=== PATIENT | male | born 1985 | race Caucasian/White ===

== ENCOUNTER 2017-09-28 10:43 | Emergency (ER) | payer SELFPAY ==
[2017-09-28 10:53] VITALS: BP 142/85; PULSE 69; TEMP 98.1; BMI 24.3
--- NOTE | 2017-09-28 11:17 | PDOC ---
History of Present Illness - General Chief Complaint: Abscess Boil Stated Complaint: FACE INJURY History Source: Patient Exam Limitations: No Limitations - History of Present Illness Initial Comments: 09/28/17 11:26 Pt is a 32 yo M current marijuana smoker, PMHx of childhood asthma, presenting with R lower jaw swelling x2 days. Patient suddenly noticed the R lower jaw swelling, denies trauma or falls. No associated fevers, no drooling, no difficulty oepning the moth, no sore throat no swellings in other parts of the body, no difficulty breathing, no ear pain or discharge, no nasal congestion. Patient has had dental problems in need of dental care in the past but did not follow up. Pt has still been able to chew on the opposite side. 09/28/17 11:27 Timing/Duration: getting worse Severity: moderate Associated Symptoms: denies: chest pain, cough, diaphoresis, fever/chills, loss of appetite, malaise, nausea/vomiting, seizure, shortness of breath, syncope Past History - Travel Traveled outside of the country in the last 30 days: No Close contact w/someone who was outside of country & ill: No - Past Medical History Allergies/Adverse Reactions: Allergies Allergy/AdvReac Type Severity Reaction Status Date / Time No Known Allergies Allergy Verified 09/28/17 10:49 Home Medications: Ambulatory Orders Amox-Tr/K Cl [Augmentin - 875Mg Tablet] 1 tab PO BID #14 tablet 09/28/17 Ibuprofen [Motrin -] 600 mg PO QID #28 tablet 09/28/17 Asthma: Yes (Childhood asthma) CVA: No COPD: No DVT: No Dementia: No - Immunization History Immunization Up to Date: Yes - Suicide/Smoking/Psychosocial Hx Smoking History: Never smoked Drug/Substance Use Hx: Yes (Marijuana) Substance Use Type: Marijuana Review of Systems - Review of Systems Able to Perform ROS?: Yes Is the patient limited Mongolian proficient: No Constitutional: No: Chills, Fever, Malaise, Night Sweats, Weakness HEENTM: Yes: Other (L lower jaw swelling). No: Eye Pain, Blurred Vision, Ear Discharge, Nose Pain, Nose Congestion, Hearing Loss, Throat Pain, Difficulty Swallowing Respiratory: No: Cough, Orthopnea, Shortness of Breath, SOB at Rest, Stridor, Wheezing, Productive cough, Hemoptysis Cardiac (ROS): No: Chest Pain, Edema, Palpitations, Syncope, Chest Tightness ABD/GI: No: Abdominal Distended, Nausea, Vomiting : No: Burning, Dysuria, Hematuria Musculoskeletal: No: Back Pain, Muscle Weakness Neurological: No: Headache, Numbness, Paresthesia, Seizure, Dizziness Hematologic/Lymphatic: No: Anemia, Blood Clots *Physical Exam - Vital Signs Last Vital Signs Temp Pulse Resp BP Pulse Ox 98.1 F 69 18 142/85 99 09/28/17 10:50 09/28/17 10:50 09/28/17 10:50 09/28/17 10:50 09/28/17 10:50 - Physical Exam General Appearance: No: Apparent Distress HEENT: positive: EOMI, LINDA, Hearing Grossly Normal, Other (Swollen R lower jaw , no fluctuance. Missing teeth, number 30 and multiple teeth with cavities, no evidence of periodontitis, no obvious internal mass. No palpable nodes. Firm skin externally). negative: Scleral Icterus (L), Pharyngeal Erythema, Tonsillar Exudate, Nasal Congestion Neck: positive: Supple. negative: Tender Respiratory/Chest: positive: Lungs Clear, Normal Breath Sounds. negative: Chest Tender, Respiratory Distress, Labored Respiration, Stridor, Wheezing Cardiovascular: positive: Regular Rate, S1, S2. negative: Tachycardia Gastrointestinal/Abdominal: positive: Normal Bowel Sounds, Soft Musculoskeletal: negative: CVA Tenderness Extremity: positive: Normal Inspection Integumentary: positive: Dry, Warm Medical Decision Making - Medical Decision Making 09/28/17 11:38 R Lower jaw skin swelling, non fluctuant, likely cellulitis of R lower jaw. Could be secondary to dental cavities Patient able to breath well, no drooling. Plan: Augmentin PO 875 mg bid x 1 week Patient to return in 2 days for wound care If he developes difficulty breathing or the swelling worsens, he should return to the ED 09/28/17 12:05 *DC/Admit/Observation/Transfer Diagnosis at time of Disposition: Swelling, Jaw asymmetry, Skin and subcutaneous tissue disease Cellulitis Qualifiers: Site of cellulitis: face Qualified Code(s): L03.211 - Cellulitis of face - Discharge Dispostion Disposition: HOME Condition at time of disposition: Fair Admit: No - Prescriptions Prescriptions: Amox-Tr/K Cl [Augmentin - 875Mg Tablet] 1 tab PO BID #14 tablet Ibuprofen [Motrin -] 600 mg PO QID #28 tablet - Referrals - Patient Instructions Additional Instructions: You were seen here for swelling of your R lower jaw. You were noted to have an infection of the skin without an abscess. We are giving you Augmentin 875mg to take by moth twice a day for one week You should also take Ibuprofen 600mg every 6 hours for pain If you have worsening swelling, or are unable to breath, please return to the emergency room Return in 2 days to have a check to make sure the swelling is getting better. Please follow up with a dentist to have your teeth examined and treated - Post Discharge Activity - Attestations Physician Attestion: 09/28/17 11:54 Louise Vallecillo MD
[2017-09-28] MEDS ORDERED: AMOX TR/POT CLAV 875MG/125MG TABLETS (FP) PO ONE (11:35)
--- NOTE | 2017-09-28 11:41 | PDOC ---
Attending Attestation - Resident Resident Name: Louise Vallecillo I - ED Attending Attestation I have performed the following: I have examined & evaluated the patient, The case was reviewed & discussed with the resident, I agree w/resident's findings & plan, Exceptions are as noted - HPI HPI: 09/28/17 11:36 32-year-old male with no past medical history presents with right facial, jaw swelling. The patient reports that the symptoms are gone on for 2 days but worsened this morning. Patient does have history of dental cavities that he has not recently seen a dentist about. Noticed that he was developing some right lower jaw skin pain and some swelling and came to the ED. Denies fevers or chills. Patient is able to breathe comfortably and tolerated by mouth without discomfort. No drooling. Came in for evaluation. - Physicial Exam PE: 09/28/17 11:39 GENERAL: Awake, alert, and fully oriented, in no acute distress. HEAD: No signs of trauma EYES: PERRLA, EOMI, sclera anicteric, conjunctiva clear ENT: Auricles normal inspection, hearing grossly normal, nares patent, oropharynx clear without exudates. Tooth 30 missing. Tooth 29 and 31 with cavities. No gingival disease. R lower jaw with approx 5x5 cm induration but no fluctuance. Mild tenderness. No erythema. No drainage. No salivary stones. NECK: Normal ROM, supple, no lymphadenopathy, JVD, or masses EXTREMITIES: Normal range of motion, no edema. No clubbing or cyanosis. No cords, erythema, or tenderness NEUROLOGICAL: Cranial nerves II through XII grossly intact. Normal speech, normal gait SKIN: Warm, Dry, normal turgor, no rashes or lesions noted. - Medical Decision Making 09/28/17 11:41 Vital Signs Temp Pulse Resp BP Pulse Ox 98.1 F 69 18 142/85 99 09/28/17 10:50 09/28/17 10:50 09/28/17 10:50 09/28/17 10:50 09/28/17 10:50 The patient is well-appearing and nontoxic. The patient most certainly has indurated skin on the right side of face. No fevers, chills. Breathing comfortably. No evidence of airway obstruction. No clinical evidence of an abscess. I suspect that the source of infection is from the cavities. Will prescribe augmentin. Will treat as facial cellulitis. I advised the patient that if the swelling worsens even more tomorrow to return for a CT facial with IV contrast. Otherwise, patient should return to the ER in 2 days for a wound check. Pt is agreeable to plan.
[2017-09-28] MEDS ORDERED: IBUPROFEN 600 MG TABLET (FP) PO ONE ×2 (11:48→11:51)
[2017-09-28] MEDS ORDERED: AMOX TR/POT CLAV 875MG/125MG TABLETS (FP) ONE (11:50)
== END 2017-09-28 12:10 | disposition home or self-care (01) ==
LOC: JER 10:43
DX: L03.211 Cellulitis of face (principal); K02.9 Dental caries, unspecified
CPT/HCPCS: 99281-25

== ENCOUNTER 2024-05-31 20:48 | Day surgery (SDC) | payer OTHER ==
[2024-05-31 20:55] VITALS: BMI 23.1
[2024-05-31] MEDS ORDERED: ACETAMINOPHEN INJECTION 100 ML ONE (21:33)
[2024-05-31] MEDS ORDERED: ONDANSETRON 4 MG/2 ML VIAL ONE (21:33)
[2024-05-31 21:34] LABS: BASO % 0.4 % (0-2.0); EOS % 0.6 % (0-4.5); HEMATOCRIT 38.4 % (35.4-49); LYMPH % 30.8 % (8-40); MCH 31.8 pg (25.7-33.7); MEAN CELL VOLUME 93.5 fl (80-96); MEAN PLT VOLUME 8.1 fl (7.5-11.1); MONO % 4.5 % (3.8-10.2); NEUT % 63.7 % (42.8-82.8); PLATELET COUNT 235 10^3/uL (134-434); RBC 4.11 M/mm3 (4.00-5.60); RDW 13.5 % (11.9-15.9); WHITE BLOOD COUNT 11.9 K/mm3 (4.0-10.0)
[2024-05-31] MEDS: ONDANSETRON 4 MG/2 ML VIAL IVPUSH ONE (21:41)
[2024-05-31] MEDS: SODIUM CHLORIDE 0.9% 500 ML INFUS.BAG IV ONE (21:41)
[2024-05-31] MEDS: ACETAMINOPHEN 1000 MG/100 ML BAG IVPB ONE (21:41)
[2024-05-31 21:49] LABS: POTASSIUM 3.8 mmol/L (3.5-5.1)
[2024-05-31 21:51] LABS: CALCIUM 9.1 mg/dL (8.5-10.1)
[2024-05-31 21:52] LABS: ALBUMIN 3.7 g/dl (3.4-5.0); BLOOD UREA NITROGEN 12.8 mg/dL (7-18)
[2024-05-31 21:56] LABS: BILIRUBIN,TOTAL 0.3 mg/dL (0.2-1); TOT PROT 7.9 g/dl (6.4-8.2)
[2024-05-31] MEDS ORDERED: KETOROLAC TROMETHAMINE 30 MG/1 ML VIAL ONE (22:03)
[2024-05-31] MEDS: KETOROLAC TROMETHAMINE 30 MG/1 ML VIAL IVPUSH ONE (22:06)
[2024-05-31 22:52] LABS: EPI CELLS 1 /uL (0-25.1); HYALINE CASTS 0 /uL (0-3.1); URINE APPEARANCE TURBID; URINE BACTERIA 9 /uL (0-1359); URINE BILIRUBIN NEGATIVE (NEGATIVE); URINE COLOR ORANGE; URINE GLUCOSE (UA) NEGATIVE (NEGATIVE); URINE KETONE TRACE (NEGATIVE); URINE LEUK ESTERASE TRACE (NEGATIVE); URINE NITRITE NEGATIVE (NEGATIVE); URINE PROTEIN 2+ (NEGATIVE); URINE RBC 2469 /uL (0-23.9); URINE UROBILINOGEN 0.2 mg/dL (0.2-1.0); URINE WBC 45 /uL (0-25.8)
[2024-05-31] MEDS ORDERED: MORPHINE SULFATE 2 MG/ML SYRINGE ONE (22:58)
[2024-05-31] MEDS: SODIUM CHLORIDE 1,000 ML IV STA (23:08)
[2024-05-31] MEDS: morphine CARPU-JECT 2 MG/1 ML DISP.SYRIN IVPUSH ONE (23:08)
[2024-06-01] MEDS ORDERED: SODIUM CHLORIDE 1,000 ML IV SCH (01:00)
[2024-06-01] MEDS ORDERED: TAMSULOSIN HCL 0.4 MG CAP ONE ×2 (01:03→10:04)
[2024-06-01] MEDS ORDERED: CEFTRIAXONE 1 G/50 ML PREMIX 50 ML IVPB ONE ×2 (01:04→11:25)
[2024-06-01] MEDS: CEFTRIAXONE 1 GM in DEXTROSE 5%-WATER - 100 ML IVPB ONE (01:06)
[2024-06-01] MEDS: TAMSULOSIN HCL 0.4 MG CAP PO ONE (01:06)
[2024-06-01 01:17] LABS: INR 0.96 (0.83-1.09); PROTHROMBIN TIME (PATIENT) 11.1 SEC (9.7-13.0)
[2024-06-01 01:20] LABS: ACTIVATED PTT 28.6 SECONDS (25.2-36.5)
[2024-06-01] MEDS ORDERED: morphine SULFATE 4 MG/ML VIAL ONE (02:37)
[2024-06-01] MEDS ORDERED: MORPHINE SULFATE 2 MG/ML SYRINGE ONE ×3 (02:40→09:00)
[2024-06-01] MEDS: SODIUM CHLORIDE 1,000 ML IV SCH (02:49)
[2024-06-01] MEDS: MORPHINE SULFATE 2 MG/ML SYRINGE IVPUSH PRN (02:50)
[2024-06-01 07:26] LABS: BASO % 0.3 % (0-2.0); EOS % 0.5 % (0-4.5); HEMATOCRIT 37.2 % (35.4-49); HEMOGLOBIN 12.8 GM/dL (11.7-16.9); LYMPH % 32.4 % (8-40); MCH 32.1 pg (25.7-33.7); MCHC 34.5 g/dl (32.0-35.9); MEAN CELL VOLUME 93.2 fl (80-96); MEAN PLT VOLUME 8.8 fl (7.5-11.1); MONO % 7.1 % (3.8-10.2); NEUT % 59.7 % (42.8-82.8); PLATELET COUNT 204 10^3/uL (134-434); RBC 3.99 M/mm3 (4.00-5.60); RDW 13.6 % (11.9-15.9); WHITE BLOOD COUNT 8.1 K/mm3 (4.0-10.0)
[2024-06-01 07:28] LABS: INR 0.98 (0.83-1.09); PROTHROMBIN TIME (PATIENT) 11.3 SEC (9.7-13.0)
[2024-06-01 07:45] LABS: CALCIUM 8.1 mg/dL (8.5-10.1); MAGNESIUM 1.7 mg/dL (1.8-2.4)
[2024-06-01 07:49] LABS: CREATININE 0.9 mg/dL (0.55-1.3); PHOSPHOROUS 2.6 mg/dL (2.5-4.9)
[2024-06-01 07:51] LABS: BILIRUBIN,TOTAL 0.8 mg/dL (0.2-1); TOT PROT 6.5 g/dl (6.4-8.2)
[2024-06-01] MEDS ORDERED: ACETAMINOPHEN 325 MG TABLET (FP) ONE (08:28)
[2024-06-01] MEDS: ACETAMINOPHEN 325 MG TABLET (FP) PO PRN (08:30)
[2024-06-01] MEDS: morphine CARPU-JECT 2 MG/1 ML DISP.SYRIN IVPUSH ONE (09:08)
[2024-06-01] MEDS ORDERED: ACETAMINOPHEN 1000 MG/100 ML BAG IVPB PRN (09:19)
[2024-06-01] MEDS ORDERED: morphine SULFATE 4 MG/ML VIAL IVPUSH PRN (09:19)
[2024-06-01] MEDS ORDERED: ENOXAPARIN NA (PORCINE) 40 MG/0.4 ML DISP.SYRIN SQ SCH (10:00)
[2024-06-01] MEDS ORDERED: KETOROLAC TROMETHAMINE 15 MG/ML VIAL ONE (10:05)
[2024-06-01] MEDS: MORPHINE SULFATE 2 MG/ML SYRINGE IVPUSH ONE (10:10)
[2024-06-01] MEDS: KETOROLAC TROMETHAMINE 15 MG/ML VIAL IVPUSH ONE (10:10)
[2024-06-01] MEDS: TAMSULOSIN HCL 0.4 MG CAP PO SCH (10:11)
[2024-06-01] MEDS ORDERED: MAGNESIUM 1GM/D5W - 1 GM/100 ML IVPB IVPB ONE (10:28)
[2024-06-01] MEDS: MAGNESIUM 1GM/D5W 100ML - 100 ML IVPB IVPB ONE (10:37)
[2024-06-01] MEDS: LACTATED RINGERS SOLUTION 1,000 ML/1,000 ML INFUS.BAG IV SCH ×2 (11:43→13:30)
[2024-06-01] MEDS ORDERED: MIDAZOLAM HCL 2 MG/2 ML SINGLE DOSE VIAL ONE (12:19)
[2024-06-01] MEDS ORDERED: PROPOFOL 20 ML ONE (12:28)
[2024-06-01] MEDS: CEFTRIAXONE 1 GM/50 ML PREMIX IVPB ONE (12:45)
[2024-06-01] MEDS ORDERED: ACETAMINOPHEN 325 MG TABLET (FP) PO PRN (13:26)
[2024-06-01] MEDS ORDERED: ONDANSETRON 4 MG/2 ML VIAL IVPUSH PRN (13:28)
[2024-06-01] MEDS: CEFTRIAXONE 1 G/50 ML PREMIX 50 ML IVPB SCH (20:53)
[2024-06-01] MEDS: LACTATED RINGERS SOLUTION 1,000 ML IV SCH (20:54)
[2024-06-01] MEDS: ACETAMINOPHEN 1000 MG/100 ML BAG IVPB PRN (23:07)
[2024-06-02] MEDS: morphine SULFATE 4 MG/ML VIAL IVPUSH PRN (05:43)
[2024-06-02] MEDS: TAMSULOSIN HCL 0.4 MG CAP PO SCH (08:46)
[2024-06-02] MEDS: CEFTRIAXONE 1 G/50 ML PREMIX 50 ML IVPB SCH (09:28)
[2024-06-02 09:39] LABS: BASO % 0.2 % (0-2.0); HEMATOCRIT 36.3 % (35.4-49); HEMOGLOBIN 11.8 GM/dL (11.7-16.9); LYMPH % 14.4 % (8-40); MCH 31.1 pg (25.7-33.7); MCHC 32.5 g/dl (32.0-35.9); MEAN CELL VOLUME 95.5 fl (80-96); MEAN PLT VOLUME 9.7 fl (7.5-11.1); MONO % 6.4 % (3.8-10.2); PLATELET COUNT 201 10^3/uL (134-434); RDW 13.6 % (11.9-15.9); WHITE BLOOD COUNT 12.1 K/mm3 (4.0-10.0)
[2024-06-02 09:59] LABS: POTASSIUM 4.2 mmol/L (3.5-5.1)
[2024-06-02 10:01] LABS: CALCIUM 8.8 mg/dL (8.5-10.1)
[2024-06-02 10:02] LABS: ALBUMIN 3.1 g/dl (3.4-5.0); BLOOD UREA NITROGEN 7.8 mg/dL (7-18)
[2024-06-02 10:05] LABS: CREATININE 0.9 mg/dL (0.55-1.3)
[2024-06-02 10:07] LABS: BILIRUBIN,TOTAL 0.4 mg/dL (0.2-1); TOT PROT 6.7 g/dl (6.4-8.2)
[2024-06-03 03:04] VITALS: TEMP 98.2
[2024-06-03 09:43] VITALS: BP 119/65; PULSE 68; RESP 16
[2024-06-03 11:58] LABS: BASO % 0.5 % (0-2.0); EOS % 0.7 % (0-4.5); HEMATOCRIT 36.6 % (35.4-49); HEMOGLOBIN 11.8 GM/dL (11.7-16.9); LYMPH % 31.9 % (8-40); MCH 31.1 pg (25.7-33.7); MCHC 32.3 g/dl (32.0-35.9); MEAN CELL VOLUME 96.3 fl (80-96); MEAN PLT VOLUME 9.3 fl (7.5-11.1); MONO % 8.3 % (3.8-10.2); NEUT % 58.6 % (42.8-82.8); PLATELET COUNT 178 10^3/uL (134-434); RDW 14.1 % (11.9-15.9); WHITE BLOOD COUNT 9.1 K/mm3 (4.0-10.0)
== END 2024-06-03 14:10 | disposition home or self-care (01) ==
LOC: JER 20:48 → UNDOADMIN 23:25 → JERBED 23:25 → SUATTDRO 06-01 13:53 → JASUSAT 06-01 13:53 → J6S 06-01 17:16 → JASUSAT 06-03 14:10
PROVIDERS: ATTEND Student in an Organized Health Care Education/Training Program
PROC: 3E033NZ Introduction of Analgesics, Hypnotics, Sedatives into Peripheral Vein, Percutaneous Approach (ICD-10-PCS; 2024-05-31)
PROC: 3E033GC Introduction of Other Therapeutic Substance into Peripheral Vein, Percutaneous Approach (ICD-10-PCS; 2024-05-31)
PROC: 3E033GC Introduction of Other Therapeutic Substance into Peripheral Vein, Percutaneous Approach (ICD-10-PCS; 2024-05-31)
PROC: 3E033GC Introduction of Other Therapeutic Substance into Peripheral Vein, Percutaneous Approach (ICD-10-PCS; 2024-05-31)
PROC: 3E033NZ Introduction of Analgesics, Hypnotics, Sedatives into Peripheral Vein, Percutaneous Approach (ICD-10-PCS; 2024-05-31)
PROC: 3E033NZ Introduction of Analgesics, Hypnotics, Sedatives into Peripheral Vein, Percutaneous Approach (ICD-10-PCS; 2024-05-31)
PROC: 3E033GC Introduction of Other Therapeutic Substance into Peripheral Vein, Percutaneous Approach (ICD-10-PCS; 2024-05-31)
PROC: 3E033NZ Introduction of Analgesics, Hypnotics, Sedatives into Peripheral Vein, Percutaneous Approach (ICD-10-PCS; principal; 2024-06-01 13:00)
PROC: 3E03329 Introduction of Other Anti-infective into Peripheral Vein, Percutaneous Approach (ICD-10-PCS; 2024-06-01 13:00)
DX: N13.2 Hydronephrosis with renal and ureteral calculous obstruction (principal); M54.50 Low back pain, unspecified; R11.2 Nausea with vomiting, unspecified; R10.31 Right lower quadrant pain; Z20.822 Contact with and (suspected) exposure to COVID-19
CPT/HCPCS: 0241U-QW; 36415; 74176-TC; 76000-TC-FY; 80053; 81003; 83690; 83735; 84100; 85025; 85610; 85730; 86850; 86900; 86901; 87086; 93005; 93010; 94760; 99285-25; C1747; C1758; C2617; J0131